=== PATIENT | female | born 1985 | race Caucasian/White ===

== ENCOUNTER 2020-04-14 16:16 | Emergency (ER) | payer OTHER ==
[~2020-04-14] VITALS: Ht 165.1 cm; Wt 64.0 kg
[2020-04-14 16:28] VITALS: Ht 165.1 cm; Wt 64.0 kg
[2020-04-14 18:29] VITALS: BP 98/58
== END 2020-04-14 18:29 | disposition home or self-care (01) ==
LOC: ED 16:16
DX: H81.10 Benign paroxysmal vertigo, unspecified ear (principal); R51.9 Headache, unspecified
CPT/HCPCS: J0780; J1885